=== PATIENT | male | born 1955 | race Caucasian/White ===

== ENCOUNTER 2020-06-18 10:46 | Emergency (ER) | payer MEDICARE, BC, OTHER ==
[2020-06-18] MEDS ORDERED: Ketorolac 60 MG/2 ML SDV IM ONE (11:23)
--- NOTE | 2020-06-18 11:40 | EDM.PDOC ---
ED HPI GENERAL MEDICAL PROBLEM - General Chief Complaint: Back Pain or Injury Stated Complaint: BODY ACHES Time Seen by Provider: 06/18/20 10:53 Source of Information: Reports: Patient History Limitations: Reports: No Limitations - History of Present Illness INITIAL COMMENTS - FREE TEXT/NARRATIVE: HISTORY AND PHYSICAL: History of present illness: Patient is a 64-year-old male who presents to the ED today for concern of generalized body aches x1 day. Patient states that his was sick a few days ago with nausea and vomiting but she has improved with her symptoms. Patient states starting last night he has had generalized body aches. Patient states that the body aches come and go and that he has taken Tylenol every 4-6 hours with mild relief of symptoms. Patient denies any pinpoint area of body aches and states "its all over" but does state that it is more bothersome in his shoulders and upper back. Denies any trauma or injury or any associated symptoms. Patient states he has a history of hypertension and chronic back pain related to a prior injury. Denies any loss/retention of bowel and bladder function or saddle anesthesia. Patient denies fever, chills, chest pain, shortness of breath, or cough. Denies headache, neck stiff ness, change in vision, syncope, or near syncope. Denies nausea, vomiting, abdominal pain, diarrhea, constipation, or dysuria. Has not noted any blood in urine or stool. Patient has been eating and drinking appropriately. Review of systems: As per history of present illness and below otherwise all systems reviewed and negative. Past medical history: As per history of present illness and as reviewed below otherwise noncontributory. Surgical history: As per history of present illness and as reviewed below otherwise nonco ntributory. Social history: See social history for further information Family history: As per history of present illness and as reviewed below otherwise noncontributory. Physical exam: General: Patient is alert, oriented, and in no acute distress. Patient sitting comfortably on exam table. HEENT: Atraumatic, normocephalic, pupils equal and reactive bilaterally, negative for conjunctival pallor or scleral icterus, mucous membranes moist, TMs normal bilaterally, throat clear, neck supple, nontender, trachea midline. No drooling or trismus noted. No meningeal signs. No hot potato voice noted. Lungs: Patient speaking clearly without breathlessness, no wheezing or stridor, no accessory muscle use or respiratory distress. Auscultation deferred due to current COV-ID 19 outbreak. Heart: Auscultation deferred due to current COV-ID 19 outbreak. Abdomen: Soft, nondistended Pelvis: Stable nontender. Genitourinary: Deferred. Rectal: Deferred. Skin: Intact, warm, dry. No lesions or rashes noted. Extremities: No obvious deformity of the complete spine. No step-offs, crepitus, or point tenderness to palpation of the complete spine. Patient does have full range of motion of the complete spine without pain or difficulty. Heel toe gait intact. Patellar reflexes intact bilaterally. Patient was able to ambulate into the ED today without any difficulties. Otherwise, atraumatic, negative for cords or calf pain. Neurovascular unremarkable. Neuro: Awake, alert, oriented. Cranial nerves II through XII unremarkable. Cerebellum unremarkable. Motor and sensory unremarkable throughout. Exam nonfocal. Notes: Patient states he is here today because he is concerned about the coronavirus and is wondering if he can get medication for his body aches. Signs and symptoms that would prompt return to the ED thoroughly discussed with patient. Voices understanding and is agreeable to plan of care. Denies any further questions or concerns at this time. Diagnostics: EKG, COVID-19 Therapeutics: Toradol Prescription: None Impression: COVID-19 Plan: 1. Your COVID-19 screening is positive. That means you do have the coronavirus and are considered contagious. Your vital signs and oxygen saturation are well enough that you were able to monitor your symptoms at home. Continue to monitor for trouble breathing, new confusion or inability to arouse, bluish lips or face or any of the other symptoms we discussed -if this occurs please return to the emergency room. 2. Please self quarantine over the next 2 weeks. Inform any persons that you have been in contact with since you started becoming symptomatic that you have tested positive; they should be made aware and take the appropriate steps as needed. 3. You can take NyQuil during the evening to help get a restful night sleep. 4. You may alternate Tylenol and ibuprofen as needed for pain and fever management. 5. The [facility] department will be calling you and following up with you. The [place] COVID 19 Hotline phone number , They are open [place] - Tuesday 7am - 7pm. Follow up with your primary care provider for re-evaluation and re-testing after the 2 week quarantine and discuss when you should be seen. Definitive disposition and diagnosis as appropriate pending reevaluation and review of above. back Pain Score (Numeric/FACES): 5 - Related Data Allergies Allergy/AdvReac Type Severity Reaction Status Date / Time adhesive tape Allergy Rash Verified 06/18/20 11:09 Penicillins Allergy Rash Verified 06/18/20 11:09 Home Meds: Home Meds Aspirin [Adult Low Dose Aspirin EC] 81 mg PO DAILY 08/31/16 [History] Calcium Carbonate [Calcium] 500 mg PO BID 08/31/16 [History] Fish Oil/[place]-3 Fatty Acids [Fish Oil 1,000 MG] 1 gm PO BID 08/31/16 [History] Grape Seed Extract [Grape Seed] 25 mg PO DAILY 08/31/16 [History] Hydrochlorothiazide 25 mg PO DAILY 08/31/16 [History] Multivitamin [Daily Multiple Vitamin] 1 tab PO DAILY 08/31/16 [History] Ramipril 10 mg PO DAILY 08/31/16 [History] Saw [place] 80 mg PO DAILY 08/31/16 [History] Vit B Cmplx 3/Fa/Vit C/Biotin [[place]hel-Michael Rx Tablet] 1 tab PO DAILY 08/31/16 [History] amLODIPine Besylate [Amlodipine Besylate] 5 mg PO DAILY 08/31/16 [History] calcium polycarbophiL [Fibercon] 625 mg PO DAILY 08/31/16 [History] Acetaminophen/oxyCODONE [Percocet 325-5 MG] 2 tab PO Q4H PRN #60 tablet 09/26/16 [Rx] Ondansetron [Ondansetron ODT] 4 mg PO Q6H PRN #30 tab.rapdis 09/26/16 [Rx] Polyethylene Glycol 3350 [MiraLAX] 17 gm PO BEDTIME #30 packet 09/26/16 [Rx] Aloe Vera [place] Gel Extract [Aloe Vera] 1 gm .XX DAILY 09/30/16 [History] Calcium Polycarbophil [Fibercon] 1,250 mg PO DAILY tablet 10/03/16 [Rx] Famotidine [Pepcid] 20 mg PO DAILY PRN #30 tablet 10/03/16 [Rx] Hydrochlorothiazide 25 mg PO DAILY tablet 10/03/16 [Rx] Multivitamins [Tab-A-Michael] 1 tab PO BEDTIME tablet 10/03/16 [Rx] Ramipril [Altace] 10 mg PO DAILY cap 10/03/16 [Rx] amLODIPine [Norvasc] 5 mg PO DAILY tablet 10/03/16 [Rx] Past Medical History HEENT History: Reports: Hard of Hearing Other HEENT History: has lower removable dental plate Cardiovascular History: Reports: Hypertension Respiratory History: Reports: None Gastrointestinal History: Reports: Other (See Below) Genitourinary History: Reports: BPH Musculoskeletal History: Reports: Arthritis, Back Pain, Chronic, Fracture, Other (See Below) Other Musculoskeletal History: chronic hip pain; hx of fx right hand Neurological History: Reports: Concussion Psychiatric History: Reports: None Endocrine/Metabolic History: Reports: None Hematologic History: Reports: Blood Transfusion(s) Immunologic History: Reports: None Oncologic (Cancer) History: Reports: None Dermatologic History: Reports: None - Infectious Disease History Infectious Disease History: Reports: Chicken Pox - Past Surgical History Head Surgeries/Procedures: Reports: None Cardiovascular Surgical History: Reports: None Respiratory Surgical History: Reports: None GI Surgical History: Reports: Appendectomy, Colonoscopy, Hernia, Abdominal, Small Bowel Male Surgical History: Reports: Varicocele Resection, Vasectomy Endocrine Surgical History: Reports: None Neurological Surgical History: Reports: None Oncologic Surgical History: Reports: None Dermatological Surgical History: Reports: None Social & Family History - Family History Family Medical History: Noncontributory Cardiac: Reports: Hypertension Endocrine/Metabolic: Reports: Diabetes, type II - Tobacco Use Smoking Status *Q: Former Smoker Used Tobacco, but Quit: Yes Month/Year Tobacco Last Used: 1979 - Caffeine Use Caffeine Use: Reports: Coffee - Recreational Drug Use Recreational Drug Use: No ED ROS GENERAL - Review of Systems Review Of Systems: Comprehensive ROS is negative, except as noted in HPI. ED EXAM, GENERAL - Physical Exam Exam: See Below (see dictation) Course - Vital Signs Last Recorded V/S: Last Vital Signs Temp 96.7 F L 06/18/20 11:06 Pulse 90 06/18/20 11:06 Resp 16 06/18/20 11:06 BP 158/82 H 06/18/20 11:06 Pulse Ox 95 06/18/20 11:06 - Orders/Labs/Meds Orders: Active Orders 24 hr Category Date Time Status EKG Documentation Completion [RC] STAT Care 06/18/20 11:22 Active CORONAVIRUS COVID-19 PCR [facility] Stat Lab 06/18/20 11:59 Received Labs: Laboratory Tests 06/18/20 Range/Units 11:59 SARS CoV-2 RNA Rapid ETIENNE POSITIVE H (NEGATIVE) Meds: Medications Discontinued Medications Generic Name Dose Route Start Last Admin Trade Name Celio PRN Reason Stop Dose Admin Ketorolac Tromethamine 60 mg 06/18/20 11:23 06/18/20 11:30 Toradol IM 06/18/20 11:24 60 mg ONETIME ONE Administration Departure - Departure Time of Disposition: 12:31 Disposition: Home, Self-Care 01 Clinical Impression: COVID-19 - Discharge Information Referrals: Michael Benavides MD [Primary Care Provider] - Forms: ED Department Discharge Additional Instructions: The following information is given to patients seen in the emergency department who are being discharged to home. This information is to outline your options for follow-up care. We provide all patients seen in our emergency department with a follow-up referral. The need for follow-up, as well as the timing and circumstances, are variable depending upon the specifics of your emergency department visit. If you don't have a primary care physician on staff, we will provide you with a referral. We always advise you to contact your personal physician following an emergency department visit to inform them of the circumstance of the visit and for follow-up with them and/or the need for any referrals to a consulting specialist. The emergency department will also refer you to a specialist when appropriate. This referral assures that you have the opportunity for follow-up care with a specialist. All of these measure are taken in an effort to provide you with optimal care, which includes your follow-up. Under all circumstances we always encourage you to contact your private physician who remains a resource for coordinating your care. When calling for follow-up care, please make the office aware that this follow-up is from your recent emergency room visit. If for any reason you are refused follow-up, please contact the [facility] Emergency Department at and asked to speak to the emergency department charge nurse. [facility] [address] [place] [address] [facility] [address] [place] [address] 1. Your COVID-19 screening is positive. That means you do have the coronavirus and are considered contagious. Your vital signs and oxygen saturation are well enough that you were able to monitor your symptoms at home. Continue to monitor for trouble breathing, new confusion or inability to arouse, bluish lips or face or any of the other symptoms we discussed -if this occurs please return to the emergency room. 2. Please self quarantine over the next 2 weeks. Inform any persons that you have been in contact with since you started becoming symptomatic that you have tested positive; they should be made aware and take the appropriate steps as needed. 3. You can take NyQuil during the evening to help get a restful night sleep. 4. You may alternate Tylenol and ibuprofen as needed for pain and fever management. 5. The [facility] department will be calling you and following up with you. The [place] COVID 19 Hotline phone number , They are open Tuesday - Tuesday 7am - 7pm. Follow up with your primary care provider for re-evaluation and re-testing after the 2 week quarantine and discuss when you should be seen. Sepsis Event Note (ED) - Evaluation Sepsis Screening Result: No Definite Risk - Focused Exam Vital Signs: Vital Signs Temp Pulse Resp BP Pulse Ox 06/18/20 11:06 96.7 F L 90 16 158/82 H 95 - My Orders Last 24 Hours: My Active Orders 06/18/20 11:22 EKG Documentation Completion [RC] STAT 06/18/20 11:59 CORONAVIRUS COVID-19 PCR PH[facility] Stat - Assessment/Plan Last 24 Hours: My Active Orders 06/18/20 11:22 EKG Documentation Completion [RC] STAT 06/18/20 11:59 CORONAVIRUS COVID-19 PCR PHL Stat
[2020-06-18 12:42] VITALS: BP 140/78; PULSE 71
== END 2020-06-18 12:41 | disposition home or self-care (01) ==
LOC: MW.ED 10:46
DX: U07.1 COVID-19 (principal); I10 Essential (primary) hypertension; M19.90 Unspecified osteoarthritis, unspecified site; Z87.891 Personal history of nicotine dependence; Z88.0 Allergy status to penicillin; Z91.048 Other nonmedicinal substance allergy status; Z79.82 Long term (current) use of aspirin; Z79.899 Other long term (current) drug therapy
CPT/HCPCS: 93005; 96372; 99284; J1885; U0002; 99283

== ENCOUNTER 2025-04-13 13:28 | Emergency (ER) | payer MEDICARE, BC ==
[2025-04-13 14:40] LABS: BASOPHILS ABSOLUTE AUTO 0.05 K/uL (0.00-0.20); BASOPHILS PERCENT AUTO 0.6 % (0.0-1.0); EOSINOPHILS ABSOLUTE AUTO 0.38 K/uL (0.00-0.45); EOSINOPHILS PERCENT AUTO 4.4 % (0.0-6.0); IMMATURE GRAN ABSOLUTE AUTO 0.02 K/uL (0.00-0.05); IMMATURE GRAN PERCENT AUTO 0.2 % (0.0-0.4); LYMPHOCYTES ABSOLUTE AUTO 2.50 K/uL (1.00-4.80); LYMPHOCYTES PERCENT AUTO 29.2 % (24.0-44.0); MEAN PLATELET VOLUME 10.1 fL (9.4-12.4); MONOCYTES ABSOLUTE AUTO 0.49 K/uL (0.00-0.80); MONOCYTES PERCENT AUTO 5.7 % (0.0-8.0); NEUTROPHILS ABSOLUTE AUTO 5.12 K/uL (1.80-7.70); NEUTROPHILS PERCENT AUTO 59.9 % (41.0-71.0); NRBC ABSOLUTE 0.00 K/uL (0.00-0.02); NRBC PERCENT 0.0 /100WBC (0.0-0.2); PLATELET COUNT,PLT 323 K/uL (150-400); RED BLOOD CELL COUNT 4.91 M/uL (4.52-5.90); WHITE BLOOD CELL COUNT,WBC 8.56 K/uL (3.9-11.3)
[2025-04-13 14:57] LABS: A/G RATIO 1.2 (0.9-1.6); ALANINE AMINOTRANSFERASE,ALT 47.0 IU/L (14-63); BILIRUBIN TOTAL 0.5 mg/dL (0.2-1.0); BLOOD UREA NITROGEN,BUN 23.0 mg/dL (7.0-18.0); CARBON DIOXIDE,CO2 28.6 mmol/L (21.0-32.0); CHLORIDE,CL 102.0 mmol/L (98-107); CREATININE 0.9 mg/dL (0.8-1.3); EST CRCL DRUG DOSING (CG) 92.43 mL/min; GLUCOSE RANDOM 122.0 mg/dL (74-106); POTASSIUM,K 3.7 mmol/L (3.5-5.1); PROTEIN TOTAL,TP 7.0 g/dL (6.4-8.2); SODIUM,NA 139.0 mmol/L (136-148)
[2025-04-13 15:03] LABS: ESTIMATED GFR 91.0 mL/min (>60)
[2025-04-13 15:35] LABS: ASPARTATE AMNIOTRANSFERASE,AST 19.0 IU/L (15-37)
[2025-04-13 16:12] VITALS: BP 139/72; PULSE 66
== END 2025-04-13 16:11 | disposition home or self-care (01) ==
LOC: MW.ED 13:28
DX: I10 Essential (primary) hypertension (principal); Z91.048 Other nonmedicinal substance allergy status; Z88.0 Allergy status to penicillin; Z79.82 Long term (current) use of aspirin; Z79.899 Other long term (current) drug therapy
CPT/HCPCS: 36415; 71045; 71045-26; 80053; 83735; 84484; 85025; 93005; 99283; 99284